=== PATIENT | female | born 1950 | race Caucasian/White ===

== ENCOUNTER 2019-06-08 10:05 | Outpatient (REF) | payer MEDICARE, OTHER, SELFPAY ==
[2019-06-08 22:52] LABS: Anion Gap 7.7 mmol/L (3-11); BUN 12 mg/dL (7-18); CO2 27.3 mmol/L (21.0-32.0); CREATININE 0.79 mg/dL (0.55-1.02); Calcium 9.1 mg/dL (8.5-10.1); Chloride 105 mmol/L (98-107); Glucose 84 mg/dL (70-100); Potassium 4.6 mmol/L (3.5-5.1); Sodium 140 mmol/L (136-145)
== END 2019-06-08 10:25 ==
LOC: NCHCN 10:05
PROVIDERS: PCP Internal Medicine; Visit Provider Internal Medicine
DX: I10 Essential (primary) hypertension (principal)
CPT/HCPCS: 80048

== ENCOUNTER 2020-06-18 12:02 | Outpatient (REF) | payer MEDICARE, OTHER, SELFPAY ==
[2020-06-18 21:06] LABS: Anion Gap 8.7 mmol/L (3-11); BUN 10 mg/dL (7-18); CO2 25.3 mmol/L (21.0-32.0); CREATININE 0.75 mg/dL (0.55-1.02); Calcium 8.9 mg/dL (8.5-10.1); Chloride 104 mmol/L (98-107); Glucose 79 mg/dL (74-106); Potassium 4.3 mmol/L (3.5-5.1); Sodium 138 mmol/L (136-145)
== END 2020-06-18 12:22 ==
LOC: NCHCN 12:02
PROVIDERS: PCP Internal Medicine; Visit Provider Internal Medicine
DX: I10 Essential (primary) hypertension (principal)
CPT/HCPCS: 80048

== ENCOUNTER 2021-03-07 09:55 | Outpatient (REF) | payer MEDICARE, OTHER, SELFPAY ==
[2021-03-07 14:04] LABS: HCT 39.2 % (36.0-46.0); HGB 12.9 g/dL (11.2-15.7); MCH 32.4 pg (27.0-33.0); MCHC 32.9 % (32.0-36.0); MCV 98.5 fL (80-95); MPV 10.3 fL (8.0-11.0); Platelet Count 228 10^3/uL (130-400); RBC 3.98 10^6/uL (3.93-5.22); RDW 13.1 % (11.7-14.6); RDW-SD 47.3 fL; WBC 5.31 10^3/uL (4.4-10.8)
[2021-03-07 14:23] LABS: ALT 20 U/L (14-59); AST 17 U/L (15-37); Albumin 3.8 g/dL (3.4-5.0); Alkaline Phosphatase 43 U/L (46-116); Anion Gap 11.1 mmol/L (3-11); BUN 12 mg/dL (7-18); Bilirubin, Total 0.5 mg/dL (0.2-1.0); CO2 23.9 mmol/L (21.0-32.0); CREATININE 0.7 mg/dL (0.55-1.02); Calcium 8.8 mg/dL (8.5-10.1); Chloride 107 mmol/L (98-107); Glucose 90 mg/dL (74-106); Potassium 4.5 mmol/L (3.5-5.1); Sodium 142 mmol/L (136-145); TSH 1.81 uIU/mL (0.36-3.74); Total Protein 6.7 g/dL (6.4-8.2)
[2021-03-07 14:50] LABS: Hemoglobin A1C 5.3 % (<5.7)
== END 2021-03-07 09:56 | disposition home or self-care (01) ==
LOC: NCHCN 09:55
PROVIDERS: PCP Internal Medicine; Visit Provider Registered Nurse
DX: R55 Syncope and collapse (principal); Z83.3 Family history of diabetes mellitus
CPT/HCPCS: 80053; 85027; 83036; 84443

== ENCOUNTER 2023-01-23 17:05 | Outpatient (REF) | payer MEDICARE, OTHER, SELFPAY ==
[2023-01-23 14:37] LABS: Anion Gap 4.9 mmol/L (3-11); BUN 9 mg/dL (7-18); CO2 26.1 mmol/L (21.0-32.0); CREATININE 0.8 mg/dL (0.55-1.02); Calcium 8.5 mg/dL (8.5-10.1); Chloride 104 mmol/L (98-107); Estimated GFR 77.27 (mL/min/1.73m2); Glucose 109 mg/dL (74-106); Potassium 4.4 mmol/L (3.5-5.1); Sodium 135 mmol/L (136-145)
== END 2023-01-23 17:06 | disposition home or self-care (01) ==
LOC: NCHCN 17:05
PROVIDERS: PCP Internal Medicine; Visit Provider Internal Medicine
DX: I10 Essential (primary) hypertension (principal)
CPT/HCPCS: 80048

== ENCOUNTER 2023-02-09 16:10 | Outpatient (REF) | payer MEDICARE, OTHER, SELFPAY ==
--- OUTSIDE RECORDS SUMMARY | 2023-02-09 16:24 | XMS_ITS | CCD ---
Author Name Unknown Address [address] [place] [address] [phone] Organization Unknown Address [address] [place] [address] [phone] Care Team Providers Care Demonstrator [employer] Name Role Phone MARQUISE OGLESBY, JOY Alexis Attending Physician [phone] Vital Signs Unknown or Not Available. Allergies Unknown or Not Available. Procedures Unknown or Not Available. History of Immunizations Unknown or Not Available. Problems Unknown or Not Available. Results Unknown or Not Available. Active Medications Unknown or Not Available. Medications Administered During Visit Unknown or Not Available. Encounters Encounter Diagnosis Diagnosis Code Start Date Supraventricular tachycardia I471 12/2020 Social History Smoking Status Code Start Date End Date Former smoker [id number] Patient Decision Aids Unknown or Not Available. Discharge Instructions You were admitted to [facility] on 04/28/2021 08:51 with a principal diagnosis of Supraventricular tachycardia You were discharged from [facility] on 04/28/2021 08:51 Should you have any questions prior to discharge, please contact a member of your healthcare team. If you have left the hospital and have any questions, please contact your primary care physician. Chief Complaint and Reason For Visit Unknown or Not Available. Function Status Unknown or Not Available. Plan of Care Unknown or Not Available. Referral/Transition of Care Unknown or Not Available.
--- OUTSIDE RECORDS SUMMARY | 2023-02-09 16:25 | XMS_ITS | CCD ---
Author Name Unknown Address [address] [place] [address] [phone] Organization Unknown Address [address] [place] [address] [phone] Care Team Providers Care Contract Clerk Name Role Phone LING ECHOLS Attending Physician [phone] Vital Signs Unknown or Not Available. Allergies Unknown or Not Available. Procedures Unknown or Not Available. History of Immunizations Unknown or Not Available. Problems Unknown or Not Available. Results Unknown or Not Available. Active Medications Unknown or Not Available. Medications Administered During Visit Unknown or Not Available. Encounters Encounter Diagnosis Diagnosis Code Start Date Age-related osteoporosis wit hout current pathological fracture M810 03/06/2022 Social History Smoking Status Code Start Date End Date Former smoker [id number] Patient Decision Aids Unknown or Not Available. Discharge Instructions You were admitted to [facility] on 03/06/2022 13:01 with a principal diagnosis of Age-related osteoporosis without current pathological fracture You were discharged from [facility] on 03/06/2022 13:01 Should you have any questions prior to discharge, please contact a member of your healthcare team. If you have left the hospital and have any questions, please contact your primary care physician. Chief Complaint and Reason For Visit Chief Complaint Date of Onset POSTMENOPAUSAL STATUS Function Status Unknown or Not Available. Plan of Care Unknown or Not Available. Referral/Transition of Care Unknown or Not Available.
--- OUTSIDE RECORDS SUMMARY | 2023-02-09 16:25 | XMS_ITS | CCD ---
Author Name Unknown Address [address] [place] [address] [phone] Organization Unknown Address [address] [place] [address] [phone] Care Team Providers Care Kiln Pusher Name Role Phone MARQUISE OGLESBY, JOY Alexis Attending Physician [phone] Vital Signs Unknown or Not Available. Allergies Unknown or Not Available. Procedures Unknown or Not Available. History of Immunizations Unknown or Not Available. Problems Unknown or Not Available. Results Unknown or Not Available. Active Medications Unknown or Not Available. Medications Administered During Visit Unknown or Not Available. Encounters Encounter Diagnosis Diagnosis Code Start Date Syncope and collapse R55 05/22/2021 Social History Smoking Status Code Start Date End Date Former smoker [id number] Patient Decision Aids Unknown or Not Available. Discharge Instructions You were admitted to [facility] 01 on 05/22/2021 10:10 with a principal diagnosis of Syncope and collapse You were discharged from [facility] on 05/22/2021 10:10 Should you have any questions prior to [...]
[2023-02-09 22:05] LABS: Calculated LDL 139 mg/dL (<100); Cholesterol 229 mg/dL (<200); HDL Cholesterol 82 mg/dL (40-60); Triglyceride 40 mg/dL (<150)
[2023-02-09 23:09] LABS: Vitamin D 25 Total 31.4 ng/mL (30-100)
== END 2023-02-09 16:11 | disposition home or self-care (01) ==
LOC: NCHCN 16:10
PROVIDERS: PCP Internal Medicine; Visit Provider Internal Medicine
DX: Z13.6 Encounter for screening for cardiovascular disorders (principal); M81.0 Age-related osteoporosis without current pathological fracture
CPT/HCPCS: 80061; 82306

== ENCOUNTER 2024-02-04 15:11 | Outpatient (REF) | payer MEDICARE, OTHER, SELFPAY ==
[2024-02-04 15:17] LABS: Anion Gap 8.1 mmol/L (3-11); BUN 10 mg/dL (7-18); CO2 27.9 mmol/L (21.0-32.0); CREATININE 0.8 mg/dL (0.55-1.02); Calcium 9.1 mg/dL (8.5-10.1); Chloride 103 mmol/L (98-107); Estimated GFR 76.79 (mL/min/1.73m2); Glucose 90 mg/dL (74-106); Potassium 4.5 mmol/L (3.5-5.1); Sodium 139 mmol/L (136-145)
== END 2024-02-04 15:12 | disposition home or self-care (01) ==
LOC: NCHCN 15:11
PROVIDERS: PCP Internal Medicine; Visit Provider Internal Medicine
DX: I10 Essential (primary) hypertension (principal); Z00.00 Encounter for general adult medical examination without abnormal findings
CPT/HCPCS: 80048

== ENCOUNTER 2025-02-09 09:12 | Outpatient (REF) | payer MEDICARE, OTHER, SELFPAY ==
[2025-02-09 15:51] LABS: HCT 38.1 % (36.0-46.0); MCH 33.2 pg (27.0-33.0); MCHC 34.1 % (32.0-36.0); MCV 97 fL (80-95); MPV 9.8 fL (8.0-11.0); Platelet Count 244 10^3/uL (130-400); RBC 3.91 10^6/uL (3.93-5.22); RDW 12.8 % (11.7-14.6); RDW-SD 45.6 fL; WBC 5.22 10^3/uL (4.4-10.8)
[2025-02-09 16:24] LABS: ALT 25 U/L (14-59); AST 23 U/L (15-37); Albumin 3.9 g/dL (3.4-5.0); Alkaline Phosphatase 54 U/L (46-116); Anion Gap 5.7 mmol/L (3-11); BUN 8 mg/dL (7-18); Bilirubin, Total 0.7 mg/dL (0.2-1.0); CO2 27.3 mmol/L (21.0-32.0); CREATININE 0.7 mg/dL (0.55-1.02); Calcium 8.6 mg/dL (8.5-10.1); Calculated LDL 123 mg/dL (<100); Chloride 102 mmol/L (98-107); Cholesterol 209 mg/dL (<200); Estimated GFR 89.58 (mL/min/1.73m2); Glucose 90 mg/dL (74-106); HDL Cholesterol 75 mg/dL (>or=50); Potassium 4.6 mmol/L (3.5-5.1); Sodium 135 mmol/L (136-145); Total Protein 7.1 g/dL (6.4-8.2); Triglyceride 59 mg/dL (<150)
== END 2025-02-09 09:13 | disposition home or self-care (01) ==
LOC: NCHCN 09:12
PROVIDERS: PCP Internal Medicine; Visit Provider Internal Medicine
DX: I10 Essential (primary) hypertension (principal); E78.49 Other hyperlipidemia; Z00.00 Encounter for general adult medical examination without abnormal findings
CPT/HCPCS: 80053; 80061; 85027